=== PATIENT | male | born 1965 ===

== ENCOUNTER 2022-06-17 20:15 | Emergency (ER) | payer OTHER ==
[~2022-06-17] VITALS: Ht 170.2 cm; Wt 95.4 kg
[2022-06-17] VITALS (11 sets, daily range): BP systolic 94–139; BP diastolic 62–96
[2022-06-18] VITALS: BP 106/71
[2022-06-18] MEDS ORDERED: AMOX/K CLAV875 M1 PO (00:29)
[2022-06-18 00:30] VITALS: BP 113/70
[2022-06-18] MEDS ORDERED: PERCOCET 5/321 COMBO PO (00:30)
[2022-06-18] MEDS ORDERED: TOBRAMYCIN0.31 OS (00:32)
[2022-06-18] MEDS ORDERED: TOBRAMYCIN0.31 OU (00:37)
[2022-06-18 00:42] VITALS: BP 113/70
== END 2022-06-18 00:51 | disposition home or self-care (01) | DRG 156 ==
LOC: ED 20:15
DX: S02.2XXA Fracture of nasal bones, initial encounter for closed fracture (principal); S05.02XA Injury of conjunctiva and corneal abrasion without foreign body, left eye, initial encounter; H20.042 Secondary noninfectious iridocyclitis, left eye; I10 Essential (primary) hypertension; J45.909 Unspecified asthma, uncomplicated; Y04.8XXA Assault by other bodily force, initial encounter; Y92.149 Unspecified place in prison as the place of occurrence of the external cause